=== PATIENT | female | born 1990 | race Caucasian/White ===

== ENCOUNTER 2024-03-23 06:08 | Day surgery (SDC) | payer OTHER ==
[2024-03-23] MEDS ORDERED: PROPOFOL 20 ML ONE (06:36)
[2024-03-23] MEDS ORDERED: fentaNYL 50 mcg/mL 1 mL Vial ONE ×3 (06:36→09:26)
[2024-03-23] MEDS ORDERED: SUGAMMADEX SODIUM 200 MG/2 ML VIAL ONE (06:36)
[2024-03-23] MEDS ORDERED: Lidocaine 1% PF 5 ML VIAL ONE (06:36)
[2024-03-23] MEDS ORDERED: Ondansetron PF 4 MG/2 ML Vial ONE (06:36)
[2024-03-23] MEDS ORDERED: Dexamethasone 20 MG/5 ML VIAL ONE (06:36)
[2024-03-23] MEDS ORDERED: Midazolam HCl 2 mg/2 ml Vial ONE (06:36)
[2024-03-23] MEDS ORDERED: Rocuronium Bromide 10 MG/ML (10ML VIAL) ONE (06:36)
[2024-03-23] MEDS ORDERED: Dexmedetomidine 200 MCG/2 ML VIAL ONE (06:36)
[2024-03-23] MEDS ORDERED: Lidocaine 1% w/Epinephrine 1:200K 30 ML VIAL ONE (06:43)
[2024-03-23] MEDS ORDERED: AFRIN NASAL MIST 15 ML BOT ONE ×2 (06:43→07:15)
[2024-03-23] MEDS ORDERED: Oxymetazoline HCl 0.05% ( 15 ML ) ONE (07:30)
[2024-03-23] MEDS ORDERED: HYDROcodone/Acetaminophen 5/325 mg Tablet ONE (10:18)
== END 2024-03-23 10:55 | disposition home or self-care (01) ==
LOC: CSHSDC 06:08
PROVIDERS: ATTEND Otolaryngology Plastic Surgery within the Head & Neck
PROC: 09DQ4ZZ Extraction of Right Maxillary Sinus, Percutaneous Endoscopic Approach (ICD-10-PCS; principal; 2024-03-23)
PROC: 09DU4ZZ Extraction of Right Ethmoid Sinus, Percutaneous Endoscopic Approach (ICD-10-PCS; principal; 2024-03-23)
DX: J32.4 Chronic pansinusitis (principal); J34.89 Other specified disorders of nose and nasal sinuses; E78.5 Hyperlipidemia, unspecified; Z88.0 Allergy status to penicillin; Z79.899 Other long term (current) drug therapy
CPT/HCPCS: J1100; J2250; J2405; J2704; J3010